=== PATIENT | male | born 1935 | race Caucasian/White ===

== ENCOUNTER 2017-01-06 10:04 | Outpatient (RCR) | payer SELFPAY ==
[~2017-01-06 10:04] MED LIST: /METO25TAB PO; ASPI81CH PO; CRES20TA PO; DOCU100C PO; FISH100035 PO; LISI20TA PO; MELO7.5S PO; METF1000 PO; OMEP20CA3 PO; SERT-141 PO; SITA50TAB PO; VITMTA PO; [UNRECOGNIZED DRUG - CODE]; [UNRECOGNIZED DRUG - OTHER]
== END 2017-01-13 ==
LOC: M CR 10:04
PROVIDERS: ATTEND Family Medicine
DX: Z51.89 Encounter for other specified aftercare (principal); Z95.5 Presence of coronary angioplasty implant and graft

== ENCOUNTER 2017-05-08 12:58 | Outpatient (RCR) | payer SELFPAY | END 2017-05-15 | LOC: M CR 12:58 | PROVIDERS: ATTEND Family Medicine | DX: Z51.89 Encounter for other specified aftercare (principal); Z98.890 Other specified postprocedural states; Z95.5 Presence of coronary angioplasty implant and graft ==

== ENCOUNTER 2017-10-27 09:00 | Outpatient (RCR) | payer SELFPAY | END 2017-11-15 | LOC: M CR 09:00 | DX: Z51.89 Encounter for other specified aftercare (principal); Z95.1 Presence of aortocoronary bypass graft ==

== ENCOUNTER 2018-04-04 13:09 | Outpatient (RCR) | payer SELFPAY | END 2018-04-14 | LOC: M CR 13:09 | DX: Z95.1 Presence of aortocoronary bypass graft (principal) ==

== ENCOUNTER 2018-07-23 09:51 | Outpatient (RCR) | payer SELFPAY | END 2018-08-15 | LOC: M CR 09:51 | DX: Z95.1 Presence of aortocoronary bypass graft (principal) ==

== ENCOUNTER 2018-11-26 09:46 | Outpatient (RCR) | payer SELFPAY ==
[~2018-11-26 09:46] MED LIST changes: +ATOR40TA75 PO
== END 2018-12-13 ==
LOC: M CR 09:46
PROVIDERS: ATTEND Family Medicine
DX: Z95.1 Presence of aortocoronary bypass graft (principal)

== ENCOUNTER 2019-03-04 13:57 | Outpatient (RCR) | payer SELFPAY ==
[~2019-03-04 13:57] MED LIST changes: -/METO25TAB PO; +METO1TAB87 PO
== END 2019-03-15 ==
LOC: M CR 13:57
PROVIDERS: ATTEND Family Medicine
DX: I25.810 Atherosclerosis of coronary artery bypass graft(s) without angina pectoris (principal)

== ENCOUNTER → 2019-05-15 | Outpatient (CLI) | payer MEDICARE ==
[~2019-05-15] MED LIST changes: +ISOVUE-370 76% 100ML VIAL (Q9967) As Ordered ONE
--- NOTE | 2019-05-15 18:36 | REPVR ---
EXAM: CT Angiography Neck With Contrast EXAM DATE/TIME: 05/15/2019 5:23 PM CLINICAL HISTORY: 83 years old, male; Condition or disease; Occlusion or stenosis of cerebral arteries; Additional info: Stenosis RT carotid artery TECHNIQUE: Imaging protocol: Axial computed tomographic angiography images of the neck with intravenous contrast using CT angiography protocol. Coronal and sagittal reformatted images were created and reviewed. 3D rendering: MIP and 3D reconstructed images were created and reviewed. Radiation optimization: All CT scans at this facility use at least one of these dose optimization techniques: automated exposure control; mA and/or kV adjustment per patient size (includes targeted exams where dose is matched to clinical indication); or iterative reconstruction. Contrast material: ISOVUE 370;Contrast volume: 75 ml;Contrast route: IV; COMPARISON: MRA CAROTID W/O FOL WITH 07/17/2013 2:25 PM (no report) Thyroid, ST head+neck US 04/25/2016 1:09:36 PM Portions of MRI-Brain without Contrast 07/17/2013 2:06:59 PM FINDINGS: VASCULATURE: Right common carotid artery: No significant stenosis. No dissection or occlusion. Right internal carotid artery: Severe (76%) stenosis of the proximal right ICA. No occlusion or dissection. Right external carotid artery: No occlusion or significant stenosis. Right vertebral artery: No significant stenosis. No dissection or occlusion. Left common carotid artery: No significant stenosis. No dissection or occlusion. Left internal carotid artery: Moderate (61%) stenosis of the proximal left ICA. No occlusion or dissection. Left external carotid artery: No occlusion or significant stenosis. Left vertebral artery: No significant stenosis. No dissection or occlusion. NECK: Brain: Partially visualized chronic right parietal encephalomalacia. Sinuses: Fluid in left maxillary sinus and the sphenoid sinus. Thyroid: 2.3 cm left thyroid nodule. Bones/joints: Status post median sternotomy. No acute fracture. Normal alignment. Degenerative changes in the spine. Soft tissues: Normal. Lungs: Centrilobular emphysematous changes. Dental: Dental disease noted. IMPRESSION: 1. No dissection or occlusion in the carotid or vertebral arteries. 2. 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 3. Left thyroid nodule. Please refer to recent thyroid ultrasound report. 4. Nonacute/incidental findings above. COMMENT: 1. Reference per NASCET criteria for degree of stenosis: Mild: less than 50% stenosis. Moderate: 50-69% stenosis. Severe: 70-94% stenosis. Near occlusion: 95-99% stenosis. 2. In patients aged 35 years and older with an incidental thyroid nodule equal to or greater than 1.[address], MRI or extrathyroidal US, further evaluation with dedicated thyroid US is recommended for patients with normal life expectancy and without comorbidities. For smaller nodules without suspicious features, no further evaluation or follow up is recommended. Electronically signed by: Frankie Adams On 05/15/2019 18:35:54 PM
== END ==
LOC: M RAD 17:01
PROVIDERS: ATTEND Surgery Vascular Surgery
DX: I65.21 Occlusion and stenosis of right carotid artery (principal)
CPT/HCPCS: 70498; Q9967

== ENCOUNTER 2019-07-17 10:36 | Outpatient (RCR) | payer SELFPAY ==
[~2019-07-17 10:36] MED LIST changes: -ISOVUE-370 76% 100ML VIAL (Q9967) As Ordered ONE; +LEVO25TA5 PO; +LISI40TA PO; +PLAV1TAB2 PO; +[UNRECOGNIZED DRUG - CODE] PO
== END 2019-08-15 ==
LOC: M CR 10:36
PROVIDERS: ATTEND Family Medicine
DX: I25.810 Atherosclerosis of coronary artery bypass graft(s) without angina pectoris (principal)

== ENCOUNTER 2019-11-11 09:30 | Outpatient (RCR) | payer SELFPAY | END 2019-11-15 | LOC: M CR 09:30 | PROVIDERS: ATTEND Family Medicine | DX: Z51.89 Encounter for other specified aftercare (principal) ==

== ENCOUNTER 2019-11-27 14:00 | Outpatient (RCR) | payer SELFPAY ==
[~2019-11-27] VITALS: Ht 167.6 cm; Wt 78.3 kg
[2019-12-02 08:40] VITALS: BP 158/82
[2019-12-02 09:30] VITALS: BP 110/64
[2019-12-04 09:15] VITALS: BP 148/88
[2019-12-04 10:50] VITALS: BP 128/80
[2019-12-09 08:45] VITALS: BP 136/78
[2019-12-09 09:31] VITALS: BP 128/80
== END 2019-12-14 ==
LOC: M CR 14:00
PROVIDERS: ATTEND Family Medicine
DX: Z47.89 Encounter for other orthopedic aftercare (principal); Z95.1 Presence of aortocoronary bypass graft

== ENCOUNTER 2019-12-16 11:31 | Outpatient (RCR) | payer SELFPAY ==
[2019-12-16 10:00] VITALS: BP 152/72
[2019-12-16 15:00] VITALS: BP 148/80
[2019-12-20 08:50] VITALS: BP 142/80
[2019-12-20 09:15] VITALS: BP 120/70
[2019-12-23 08:30] VITALS: BP 130/84
[2019-12-23 09:30] VITALS: BP 170/84
== END 2020-01-14 ==
LOC: M CR 11:31
PROVIDERS: ATTEND Family Medicine
DX: Z51.89 Encounter for other specified aftercare (principal); Z95.1 Presence of aortocoronary bypass graft

== ENCOUNTER → 2020-03-04 | Outpatient (REF) | payer MEDICARE, OTHER ==
[2020-03-04 13:52] LABS: BASO % 0.4 % (0.0-1.0); EOS # 0.5 10^3/uL (0.0-0.5); EOS % 6.4 % (0.0-3.0); HEMATOCRIT 42.3 % (42.0-52.0); HEMOGLOBIN 14.2 g/dl (13.5-17.5); LYMPH % 28.3 % (24.0-44.0); MEAN CORPUSCULAR HEMOGLOBIN 32.2 pg (27.0-33.0); MEAN CORPUSCULAR HGB CONC 33.6 g/dl (32.0-36.5); MEAN CORPUSCULAR VOLUME 95.9 fl (80.0-96.0); MONO # 0.9 10^3/uL (0.0-0.8); MONO % 13.1 % (0.0-5.0); NEUTROPHILS # 3.7 10^3/uL (1.5-8.5); NEUTROPHILS % 51.7 % (36.0-66.0); PLATELET COUNT, AUTOMATED 255 10^3/uL (150-450); RED BLOOD COUNT 4.41 10^6/uL (4.30-6.10); WHITE BLOOD COUNT 7.2 10^3/uL (4.0-10.0)
[2020-03-04 14:03] LABS: ALBUMIN 3.9 GM/DL (3.2-5.2); BILIRUBIN,TOTAL 0.8 MG/DL (0.2-1.0); CALCIUM LEVEL 9.4 MG/DL (8.8-10.2); CHOLESTEROL RISK RATIO 3.23 (<5); CREATININE FOR GFR 1.23 MG/DL (0.70-1.30); GLOMERULAR FILTRATION RATE 59.4 (>35); POTASSIUM SERUM 5.6 MEQ/L (3.5-5.1); TOTAL PROTEIN 7.7 GM/DL (6.4-8.2)
== END ==
LOC: M LABDRWAD 13:13
PROVIDERS: ATTEND Family Medicine
DX: E11.9 Type 2 diabetes mellitus without complications (principal)

== ENCOUNTER → 2021-12-20 | Outpatient (CLI) | payer OTHER ==
[~2021-12-20] MED LIST changes: -LISI40TA PO; +LISI40TA4 PO
== END ==
LOC: M RAD 13:10
PROVIDERS: ATTEND Nurse Practitioner Primary Care
DX: E11.22 Type 2 diabetes mellitus with diabetic chronic kidney disease (principal); N18.9 Chronic kidney disease, unspecified

== ENCOUNTER → 2022-10-20 | Outpatient (CLI) | payer OTHER ==
[~2022-10-20] MED LIST changes: +CLOP75TA99 PO; -PLAV1TAB2 PO
== END ==
LOC: M RAD 13:37
PROVIDERS: ATTEND Student in an Organized Health Care Education/Training Program
DX: N21.0 Calculus in bladder (principal); J44.9 Chronic obstructive pulmonary disease, unspecified; J98.11 Atelectasis; K57.30 Diverticulosis of large intestine without perforation or abscess without bleeding